=== PATIENT | female | born 1935 | race Caucasian/White ===

== ENCOUNTER 2021-06-20 15:17 | Outpatient (REF) | payer MEDICARE, SELFPAY ==
[2021-06-20 16:11] LABS: Anion Gap 15 (12-20); Blood Urea Nitrogen 21 mg/dL (9-16); Calcium 10.3 mg/dL (8.4-10.2); Carbon Dioxide 27 mmol/L (22-29); Chloride 100 mmol/L (96-108); Estimated Glomerular Filt Rate 58; Glucose Random 222 mg/dL (60-115); Potassium 5.2 mmol/L (3.3-5.1); Sodium 137 mmol/L (135-145)
[2021-06-20 16:33] LABS: T4 Thyroxine 6.8 ug/dL (4.5-12.0); Thyroid Stimulating Hormone 2.01 uIU/mL (0.32-4.0)
[2021-06-22 22:51] LABS: Folate 9.7 ng/mL (> or = 4.0); Vitamin B12 525 pg/mL (200-900)
== END 2021-06-20 15:18 | disposition home or self-care (01) ==
LOC: HO.LAB 15:17
PROVIDERS: PCP Pediatrics; Visit Provider Psychiatry & Neurology Neurology
DX: G31.84 Mild cognitive impairment of uncertain or unknown etiology (principal)
CPT/HCPCS: 36415; 80048; 82607; 82746; 84436; 84443